=== PATIENT | female | born 1940 | race Hispanic/Latino ===

== ENCOUNTER 2017-10-29 00:27 | Emergency (ER) | payer MEDICAID ==
[~2017-10-29] VITALS: Ht 160 cm; Wt 68.0 kg
--- NOTE | 2017-10-29 00:49 | Emergency Room Report ---
History of Present Illness General Chief Complaint: Syncope Source: Patient, Family Member, EMS Present Illness HPI Patient presents with daughter for complain of syncope Daughter reports of the patient was walking with her when she essentially collapsed to the floor Did not have any symptoms prior to the syncope Patient is on xarelto Daughter denies any symptoms prior to the event There was no reports of chest pain Patient does have some underlying confusion At this time is not able to tell me why she was brought to the ER Allergies: Coded Allergies: PENICILLINS (Unverified Allergy, Unknown, 10/29/17) Patient History Limited by: medical condition Past Medical History: see triage record Pertinent Family History: none Last Menstrual Period: none Now: No : 1 Para: 1 Reviewed Nursing Documentation: PMH: Agreed; PSxH: Agreed Nursing Documentation-PMH Hx Cardiac Problems: Yes - A-fib Hx Hypertension: Yes Hx COPD: No - CHF Hx Diabetes: Yes Review of Systems All Other Systems: limited - Other than the ones mentioned in the history of present illness all others are reviewed however they do stay limited due to the patient's mental status Physical Exam Vital Signs Date Time Temp Pulse Resp B/P (MAP) Pulse Ox O2 Delivery O2 Flow Rate FiO2 10/29/17 00:20 98.0 79 17 134/55 100 Room Air 98.1 Sp02 EP Interpretation: reviewed, normal General Appearance: well appearing, no apparent distress Head: normocephalic, atraumatic Eyes: bilateral eye PERRL, bilateral eye EOMI ENT: hearing grossly normal, normal pharynx, TMs + canals normal, uvula midline Neck: full range of motion, supple, no meningismus, no bony tend Respiratory: lungs clear, normal breath sounds, no rhonchi, no respiratory distress, no retraction, no accessory muscle use Cardiovascular #1: normal peripheral pulses, no edema, no gallop, no JVD, no murmur, irregularly irregular Gastrointestinal: normal bowel sounds, non tender, soft, no mass, no organomegaly, non-distended, no guarding, no hernia, no pulsatile mass, no rebound Genitourinary: no CVA tenderness Musculoskeletal: normal inspection Neurologic: responsive - Oriented to place and person howwever has some confusion, 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 III-XII nml as tested, motor strength/tone normal, sensory intact Psychiatric: mood/affect normal Skin: palpation normal, pallor Lymphatic: normal inspection, no adenopathy Medical Decision Making Diagnostic Impression: Primary Impression: Syncope Additional Impressions: Anemia Atrial fibrillation ER Course Patient is a fairly complex patient with multiple differential to consideration including but not limited to cardiac cardiopulmonary and vascular emergencies Patient's blood count reveals significant anemia CT head was otherwise negative this was obtained as the patient is on significant blood thinners and had trauma to the head Otherwise remains hemodynamically stable Patient has history of atrial fibrillation and is rate controlled Given the insurance purposes requires transfer Labs Test 10/29/17 00:55 10/29/17 02:22 White Blood Count 6.2 K/UL (4.8-10.8) Red Blood Count 3.27 M/UL (4.20-5.40) Hemoglobin 7.0 G/DL (12.0-16.0) Hematocrit 22.7 % (37.0-47.0) Mean Corpuscular Volume 69 FL (80-99) Mean Corpuscular Hemoglobin 21.3 PG (27.0-31.0) Mean Corpuscular Hemoglobin Concent 30.7 G/DL (32.0-36.0) Red Cell Distribution Width 17.4 % (11.6-14.8) Platelet Count 145 K/UL (150-450) Mean Platelet Volume 8.0 FL (6.5-10.1) Neutrophils (%) (Auto) 74.8 % (45.0-75.0) Lymphocytes (%) (Auto) 11.6 % (20.0-45.0) Monocytes (%) (Auto) 10.1 % (1.0-10.0) Eosinophils (%) (Auto) 1.9 % (0.0-3.0) Basophils (%) (Auto) 1.7 % (0.0-2.0) Prothrombin Time 12.4 SEC (9.30-11.50) Prothromb Time International Ratio 1.2 (0.9-1.1) Activated Partial Thromboplast Time 27 SEC (23-33) Sodium Level 133 MMOL/L (136-145) Potassium Level 4.5 MMOL/L (3.5-5.1) Chloride Level 99 MMOL/L (98-107) Carbon Dioxide Level 22 MMOL/L (21-32) Anion Gap 12 mmol/L (5-15) Blood Urea Nitrogen 41 mg/dL (7-18) Creatinine 1.3 MG/DL (0.55-1.30) Estimat Glomerular Filtration Rate mL/min (>60) Glucose Level 225 MG/DL (74-106) Calcium Level 8.9 MG/DL (8.5-10.1) Total Bilirubin 0.6 MG/DL (0.2-1.0) Aspartate Amino Transf (AST/SGOT) 24 U/L (15-37) Alanine Aminotransferase (ALT/SGPT) 29 U/L (12-78) Alkaline Phosphatase 153 U/L (46-116) Total Creatine Kinase 56 U/L (26-308) Creatine Kinase MB 1.0 NG/ML (0.0-3.6) Creatine Kinase MB Relative Index 1.7 Troponin I 0.025 ng/mL (0.000-0.056) Total Protein 7.3 G/DL (6.4-8.2) Albumin 3.7 G/DL (3.4-5.0) Globulin 3.6 g/dL Albumin/Globulin Ratio 1.0 (1.0-2.7) Lipase 162 U/L (73-393) Digoxin Level 0.6 NG/ML (0.9-2.0) Urine Color Pale yellow Urine Appearance Slightly cloudy Urine pH 6 (4.5-8.0) Urine Specific [place] 1.010 (1.005-1.035) Urine Protein 2+ (NEGATIVE) Urine Glucose (UA) 1+ (NEGATIVE) Urine Ketones Negative (NEGATIVE) Urine Occult Blood 2+ (NEGATIVE) Urine Nitrite Negative (NEGATIVE) Urine Bilirubin Negative (NEGATIVE) Urine Urobilinogen Normal MG/DL (0.0-1.0) Urine Leukocyte Esterase 1+ (NEGATIVE) Urine RBC 0-2 /HPF (0 - 2) Urine WBC 0-2 /HPF (0 - 2) Urine Squamous Epithelial Cells Occasional /LPF Urine Bacteria Many /HPF (NONE) EKG Diagnostic Results Rate: normal Rhythm: other - Irregularly irregular ST Segments: no acute changes Rhythm Strip Diag. Results EP Interpretation: yes Rate: 67 Rhythm: no PVC's, no ectopy, other - Atrial fibrilation Chest X-Ray Diagnostic Results Chest X-Ray Diagnostic Results : Chest X-Ray Ordered: Yes # of Views/Limited/Complete: 1 View Indication: Chest Pain EP Interpretation: Yes Interpretation: no consolidation, no effusion, no pneumothorax Impression: No acute disease - Mild interstitial dz Electronically Signed by: Mela Fraire DO CT/MRI/US Diagnostic Results CT/MRI/US Diagnostic Results : Impression CT head no acute disease Last Vital Signs Date Time Temp Pulse Resp B/P (MAP) Pulse Ox O2 Delivery O2 Flow Rate FiO2 10/29/17 00:20 98.0 79 17 134/55 100 Room Air 98.1 Status: improved Disposition: XFER SHT-TRM HOSP Condition: Serious Mela Fraire DO Oct 29, 2017 00:49
[2017-10-29 00:55] VITALS: BP 146/70
[2017-10-29 01:16] LABS: HEMATOCRIT 22.7 % (37.0-47.0); MEAN CORPUSCULAR VOLUME 69 FL (80-99); PLATELET COUNT 145 K/UL (150-450); RED BLOOD COUNT 3.27 M/UL (4.20-5.40); RED CELL DISTRIBUTION WIDTH 17.4 % (11.6-14.8); WHITE BLOOD COUNT 6.2 K/UL (4.8-10.8)
[2017-10-29 01:18] LABS: LYMPHOCYTES % (AUTO) 11.6 % (20.0-45.0); MONOCYTES % (AUTO) 10.1 % (1.0-10.0); NEUTROPHILS % (AUTO) 74.8 % (45.0-75.0)
[2017-10-29 01:19] LABS: BASOPHILS % (AUTO) 1.7 % (0.0-2.0); EOSINOPHILS % (AUTO) 1.9 % (0.0-3.0)
[2017-10-29 01:24] LABS: ANION GAP 12 mmol/L (5-15); BLOOD UREA NITROGEN 41 mg/dL (7-18); CALCIUM 8.9 MG/DL (8.5-10.1); CARBON DIOXIDE 22 MMOL/L (21-32); CHLORIDE 99 MMOL/L (98-107); CREATININE 1.3 MG/DL (0.55-1.30); POTASSIUM 4.5 MMOL/L (3.5-5.1); SODIUM 133 MMOL/L (136-145)
[2017-10-29 01:36] LABS: ALANINE AMINOTRANSFERASE 29 U/L (12-78); ALBUMIN 3.7 G/DL (3.4-5.0); ALKALINE PHOSPHATASE 153 U/L (46-116); ASPARTATE AMINO TRANSFERASE 24 U/L (15-37); BILIRUBIN,TOTAL 0.6 MG/DL (0.2-1.0); CREATINE KINASE 56 U/L (26-308)
[2017-10-29] MEDS ORDERED: cefTRIAXone 1 GM in NS 55 ML IVPB ONE (01:45)
[2017-10-29 01:55] VITALS: BP 136/76
[2017-10-29 02:01] LABS: INR 1.2 (0.9-1.1)
[2017-10-29] MEDS ORDERED: LORazepam Inj 2mg/ml 1ml ONE (02:07)
[2017-10-29 02:43] LABS: APPEARANCE,URINE SLIGHTLY CLOUDY; BILIRUBIN, URINE NEGATIVE (NEGATIVE); COLOR,URINE PALE YELLOW; GLUCOSE, URINE (UA) 1+ (NEGATIVE); KETONES,URINE NEGATIVE (NEGATIVE); LEUKOCYTE ESTERASE ,URINE 1+ (NEGATIVE); NITRITE,URINE NEGATIVE (NEGATIVE); PH,URINE 6 (4.5-8.0); PROTEIN,URINE 2+ (NEGATIVE); UROBILINOGEN,URINE NORMAL MG/DL (0.0-1.0)
[2017-10-29 02:55] VITALS: BP 133/81
[2017-10-29 03:55] VITALS: BP 146/55
[2017-10-29 05:00] VITALS: BP 146/55
--- NOTE | 2017-10-29 10:46 | Diagnostic Imaging Report ---
Indication: Headache. Head trauma Technique: Contiguous 5 mm thick transaxial imaging of the head obtained in a Siemens Sensation [address] scanner. Soft tissue and bone windows generated. Automatic Exposure Control was utilized. Total Dose length Product (DLP): 1411.[address] Dose Index Volume (CTDIvol): 70.38 mGy Comparison: 01/12/2011 Findings: There is mild prominence of the ventricles, basal cisterns, and cerebral sulci consistent with atrophy. Mild, nonspecific, white matter hypoattenuation is noted throughout the brain consistent with chronic small vessel disease. There is no midline shift, edema, acute hemorrhage, mass effect, or abnormal extra-axial fluid collections. Bones and extra osseous soft tissues are unremarkable. Impression: No acute intracranial bleed, mass effect or edema. Mild atrophy of the brain. Nonspecific white matter hypoattenuation probably due to chronic small vessel disease. [facility] has communicated the preliminary results to the Emergency Department. Their findings are largely concordant with this report. The CT scanner at [facility] is accredited by the [employer] and the scans are performed using dose optimization techniques as appropriate to a performed exam including Automatic Exposure control.
--- NOTE | 2017-10-29 11:30 | Diagnostic Imaging Report ---
Indication: Chest pain Comparison: 01/12/2011 A single view chest radiograph was obtained. Findings: Mild vascular congestion has developed with a prominent vascularity and a hint of mild interstitial edema. Heart is enlarged as well. Bones are osteopenic. IMPRESSION: Evidence of mild CHF
--- NOTE | 2017-11-01 17:34 | Cardiology Report ---
APPROVED REPORT EKG Measurement Heart [id number] Atrial fibrillation Nonspecific T wave abnormality Abnormal ECG
== END 2017-10-29 05:00 | disposition short-term general hospital (02) ==
LOC: EDBD 00:27 → EMR 01:50
DX: R55 Syncope and collapse (principal); D64.9 Anemia, unspecified; I48.91 Unspecified atrial fibrillation; I11.0 Hypertensive heart disease with heart failure; I50.9 Heart failure, unspecified; J44.9 Chronic obstructive pulmonary disease, unspecified; E11.9 Type 2 diabetes mellitus without complications; Z88.0 Allergy status to penicillin; Z79.01 Long term (current) use of anticoagulants
CPT/HCPCS: 36415; 70450; 71045; 80053; 80162; 81003; 82550; 82553; 83690; 84484; 85025; 85610; 85730; 87086; 87181; 93005; 96361; 96374; 99285; J0696